=== PATIENT | female | born 1955 | race Caucasian/White ===

== ENCOUNTER 2017-11-25 08:36 | Emergency (ER) | payer BC ==
[~2017-11-25] VITALS: Ht 162.6 cm; Wt 80.5 kg
[2017-11-25 08:37] VITALS: BP 151/75; PULSE 116; RESP 18; TEMP 99.1; O2SAT 98
[2017-11-25] MEDS ORDERED: METF750T PO (08:52)
[2017-11-25] MEDS ORDERED: GLIP5TAB8 PO (08:52)
[2017-11-25] MEDS ORDERED: VALS1TAB65 PO (08:52)
[2017-11-25] MEDS ORDERED: OMEP20TA93 PO (08:52)
[2017-11-25] MEDS ORDERED: ATOR20TA15 PO (08:52)
[2017-11-25] MEDS ORDERED: ACETAMINOPHEN/HYDROcodone 325 MG/5 MG TAB PO ONE (09:00)
[2017-11-25] MEDS ORDERED: CYCLOBENZAPRINE HCL 10 MG TAB PO ONE (09:00)
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
[2017-11-25 09:46] VITALS: PULSE 104
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
[2017-11-25] MEDS ORDERED: CYCL10TA PO (10:25)
[2017-11-25] MEDS ORDERED: NORC5TAB PO ×2 (10:25→10:27)
== END 2017-11-25 11:18 | disposition home or self-care (01) ==
LOC: PHEFT 08:36 → PHED 11:18
DX: S32.010A Wedge compression fracture of first lumbar vertebra, initial encounter for closed fracture (principal); V49.69XA Unspecified car occupant injured in collision with other motor vehicles in traffic accident, initial encounter; Y92.410 Unspecified street and highway as the place of occurrence of the external cause
CPT/HCPCS: 72131; 99284